=== PATIENT | male | born 1945 | race Caucasian/White ===

== ENCOUNTER 2020-08-19 20:44 | Emergency (ER) | payer OTHER ==
[~2020-08-19] VITALS: Ht 170.2 cm; Wt 7.7 kg
== END 2020-08-20 11:47 | disposition home or self-care (01) ==
LOC: ER 20:44
DX: S00.83XA Contusion of other part of head, initial encounter (principal); W18.39XA Other fall on same level, initial encounter; Y93.89 Activity, other specified; Y92.89 Other specified places as the place of occurrence of the external cause; Y99.8 Other external cause status; R41.0 Disorientation, unspecified; E86.0 Dehydration; I63.9 Cerebral infarction, unspecified; Z59.0 Homelessness